=== PATIENT | male | born 1980 | race American Indian/Alaskan Native ===

== ENCOUNTER 2022-04-24 23:24 | Emergency (ER) | payer SELFPAY ==
[2022-04-24] MEDS ORDERED: ASPIRIN 325 MG TAB PO ONE (23:38)
[2022-04-25] MEDS ORDERED: MORPHINE 4 MG/1 ML INJ IV ONE (00:10)
[2022-04-25 00:12] LABS: Basophils % (Auto) 0.6 % (0.0-1.8); Eosinophils # (Auto) 0.2 K/mm3 (0.0-0.4); Eosinophils % (Auto) 2.7 % (0.0-4.3); Hematocrit 41.1 % (35.5-45.6); Hemoglobin 13.6 gm/dl (11.8-15.2); Lymphocytes # (Auto) 2.3 K/mm3 (1.2-5.4); Mean Corpuscular HGB Conc 33 % (32-34); Mean Corpuscular Volume 90 fl (84-94); Monocytes # (Auto) 0.4 K/mm3 (0.0-0.8); Platelet Count 218 K/mm3 (140-440); Red Blood Count 4.57 M/mm3 (3.65-5.03); Red Cell Distribution Width 14.7 % (13.2-15.2)
--- NOTE | 2022-04-25 00:16 | XRay Report ---
XR chest 1V ap INDICATION / CLINICAL INFORMATION: CHEST PAIN. COMPARISON: None available. FINDINGS: SUPPORT DEVICES: None. HEART /PULMONARY VASCULATURE: No significant abnormality. LUNGS / PLEURA: 3 cm nodular density projects over the right mid and lower lung. Left lung is essenti ally clear, aside from mild scarring or volume loss in the retrocardiac region. No sizable pleural ef fusion. No pneumothorax. ADDITIONAL FINDINGS: No significant additional findings. IMPRESSION: Suspected mass lesion in the right lung base. Recommend further evaluation with CT. Signer Name: Jamey Armando MD Signed: 04/25/2022 12:11 AM Workstation Name: [id number]
[2022-04-25 00:25] LABS: Alanine Aminotransferase 14 units/L (7-56); Albumin 3.9 g/dL (3.9-5); BUN/Creatinine Ratio 10; Blood Urea Nitrogen 14 mg/dL (9-20); Calcium 9.8 mg/dL (8.4-10.2); Hemolysis Index 9
--- NOTE | 2022-04-25 03:04 | Emergency Department Report ---
ED Chest Pain HPI - General Chief Complaint: Chest Pain Stated Complaint: CHEST PAIN Time Seen by Provider: 04/24/22 23:49 Source: patient Mode of arrival: Ambulatory Limitations: No Limitations - History of Present Illness Initial Comments: Patient is a 42-year-old male with no past medical history presenting the ED with complaint of sharp left-sided chest pain beginning yesterday. The pain is nonradiating. There are no modifying factors. MD Complaint: chest pain Severity scale (0 -10): 10 - Related Data Allergies Allergy/AdvReac Type Severity Reaction Status Date / Time No Known Allergies Allergy Verified 04/24/22 23:37 Heart Score - HEART Score History: Slightly suspicious EKG: Normal Age: < 45 Risk factors: No known risk factors Troponin: < normal limit HEART Score: 0 - EKG Read Time Time EKG Completed: 23:31 EKG Read Time: 23:35 - Critical Actions Critical Actions: 0-3 pts:0.9-1.7%risk of adverse cardiac event.Candidate for discharge ED Review of Systems ROS: Stated complaint: CHEST PAIN Other details as noted in HPI Comment: All other systems reviewed and negative Constitutional: denies: chills, fever Respiratory: denies: cough, shortness of breath, wheezing Cardiovascular: chest pain Endocrine: no symptoms reported Gastrointestinal: denies: abdominal pain, nausea, diarrhea Musculoskeletal: denies: back pain, joint swelling, arthralgia Skin: denies: rash, lesions Neurological: denies: headache, weakness, paresthesias Psychiatric: denies: anxiety, depression ED Physical Exam - General Limitations: No Limitations General appearance: alert, in no apparent distress - Head Head exam: Present: atraumatic, normocephalic - Neck Neck exam: Present: normal inspection. Absent: tenderness - Respiratory Respiratory exam: Present: normal lung sounds bilaterally. Absent: respiratory distress - Cardiovascular Cardiovascular Exam: Present: regular rate, normal rhythm, normal heart sounds - GI/Abdominal GI/Abdominal exam: Present: soft. Absent: distended, tenderness - Rectal Rectal exam: Present: deferred - Neurological Exam Neurological exam: Present: alert, oriented X3 - Psychiatric Psychiatric exam: Present: normal affect, normal mood - Skin Skin exam: Present: warm, dry, intact, normal color ED Course Vital Signs 04/24/22 04/25/22 23:28 00:27 Temperature 97.5 F L Pulse Rate 80 Respiratory 20 18 Rate Blood Pressure 117/78 O2 Sat by Pulse 98 Oximetry ED Medical Decision Making - Lab Data Result diagrams: 04/24/22 23:49 04/24/22 23:49 - EKG Data -: EKG Interpreted by Me EKG shows normal: sinus rhythm, axis, intervals, QRS complexes, ST-T waves Rate: normal - Medical Decision Making Patient presenting to ED with complaint of chest pain x1 day. EKG shows no acute findings. Chest x-ray unremarkable. Labs including 2 sets of troponins are unremarkable. Heart score 0. On reassessment patient is sleeping in bed. Upon awakening states his pain is improved. He is stable for discharge home with return precautions. Critical care attestation.: If time is entered above; I have spent that time in minutes in the direct care of this critically ill patient, excluding procedure time. ED Disposition Clinical Impression: Acute nonspecific chest pain with low risk of coronary artery disease Disposition: 01 HOME / SELF CARE / HOMELESS Is pt being admited?: No Condition: Stable Instructions: Chest Pain (ED), Nonspecific Chest Pain, Adult Additional Instructions: Please follow-up with your regular doctor within 1 to 2 weeks. You may return if your symptoms present again. Time of Disposition: 03:03
[2022-04-25 04:15] VITALS: BP 135/81
--- NOTE | 2022-04-26 13:10 | Electrocardiograph Report ---
[facility] Test Date: 2022-04-24 Test Time: 23:31:48 Pat Name: STEPHANIE GRIFFITH Department: Room: Gender: M B[employer] Braider: : 1980 Requested By: ИРИНА PRICE Order Number: [id number] Reading MD: Juan F Frye Measurements Intervals [place] Rate: 69 P: 30 MS: 157 QRS: 12 QRSD: 88 T: 51 QT: 402 QTc: 432 Interpretive Statements Sinus rhythm ST elevation suggests acute pericarditis,early repolariation etc,correlate clinically. No previous ECG available for comparison Electronically Signed On 04-26-2022 13:10:33 EDT by Juan F Frye
== END 2022-04-25 03:55 | disposition home or self-care (01) ==
LOC: EDBD → ED 23:24
DX: R07.89 Other chest pain (principal)
CPT/HCPCS: 36415; 71045; 80053; 84484; 85025; 93005; 96374; 99284; J2270